=== PATIENT | male | born 1945 | race Caucasian/White ===

== ENCOUNTER 2020-03-08 09:41 | Day surgery (SDC) | payer MEDICARE ==
[2020-03-08] VITALS (12 sets, daily range): BP systolic 119–176; BP diastolic 54–86
[~2020-03-08] VITALS: Ht 177.8 cm; Wt 101.3 kg
[2020-03-08] MEDS ORDERED: dextrose 50%-water 50ml dispensing syringe IV PRN ×2 (10:10)
[2020-03-08] MEDS ORDERED: MESSAGE TO PHARMACY PO ONE (10:10)
[2020-03-08] MEDS ORDERED: diphenhydrAMINE 25mg capsule PO PRN (10:10)
[2020-03-08] MEDS ORDERED: insulin Lispro (HumaLOG) vial - multi-dose SQ SCH (10:10)
[2020-03-08] MEDS ORDERED: LORazepam 0.5 MG tablet PO PRN (10:10)
[2020-03-08] MEDS ORDERED: normal saline 1,000 ML IV SCH (10:10)
[2020-03-08] MEDS ORDERED: glucagon, human recombinant 1mg kit SUBCUT PRN (10:10)
[2020-03-08] MEDS ORDERED: dextrose ORAL solution 15 GM/59 ML bottle PO PRN ×2 (10:10)
[2020-03-08] MEDS ORDERED: nitroGLYCERIN 0.4mg SUBLingual tab SL PRN (10:10)
[2020-03-08] MEDS ORDERED: CARV25TA PO (10:17)
[2020-03-08] MEDS ORDERED: METF500T PO (10:17)
[2020-03-08] MEDS ORDERED: MULT-1085 PO (10:17)
[2020-03-08] MEDS ORDERED: SIMV-42 PO (10:17)
[2020-03-08] MEDS ORDERED: AMLO10TA48 PO (10:17)
[2020-03-08] MEDS ORDERED: FURO-149 PO (10:17)
[2020-03-08] MEDS ORDERED: OMEG-79 PO (10:17)
[2020-03-08] MEDS ORDERED: MECO10005 PO (10:17)
[2020-03-08] MEDS ORDERED: LOSA100T3 PO (10:17)
[2020-03-08] MEDS ORDERED: POTA10CA44 PO (10:17)
[2020-03-08] MEDS ORDERED: ASPI-1265 PO (10:17)
[2020-03-08] MEDS ORDERED: HYDR-4070 PO (10:17)
[2020-03-08 10:41] LABS: BASOPHILS % (AUTO) 0.7 % (0-1); EOSINOPHILS % (AUTO) 0.8 % (0-6); HEMATOCRIT 37.5 % (42.0-52.0); LYMPHOCYTES # (AUTO) 1.3 X10'3 (1.1-4.8); LYMPHOCYTES % (AUTO) 24.8 % (21-51); MEAN CORPUSCULAR HEMOGLOBIN 35.2 PG (27.0-31.0); MEAN CORPUSCULAR HGB CONC 34.8 g/dL (33.0-36.5); MEAN CORPUSCULAR VOLUME 101.1 FL (78-98); MEAN PLATELET VOLUME 7.5 FL (7.4-10.4); MONOCYTES # (AUTO) 0.5 X10'3 (0-0.9); MONOCYTES % (AUTO) 9.1 % (2-12); NEUTROPHILS # (AUTO) 3.5 X10'3 (1.8-7.7); NEUTROPHILS % (AUTO) 64.6 % (42-75); PLATELET COUNT 208 X10'3 (140-440); RED BLOOD COUNT 3.71 X10'6 (4.70-6.10); RED CELL DISTRIBUTION WIDTH 13.1 % (11.5-14.5); WHITE BLOOD COUNT 5.4 X10'3 (4.5-11.0)
[2020-03-08 10:52] LABS: ALBUMIN 3.9 G/DL (3.4-5.0); ANION GAP 10 (8-16); BLOOD UREA NITROGEN 11 MG/DL (7-18); BUN/CREATININE RATIO 10.9 (5.4-32.0); CALCIUM 9.2 MG/DL (8.5-10.1); CHLORIDE 103 MMOL/L (99-107); CREATININE 1.01 MG/DL (0.60-1.10); GLUCOSE 143 MG/DL (70-104); SODIUM 142 MMOL/L (135-145); TOTAL CARBON DIOXIDE 29.5 MMOL/L (24-32); eGFR 72 ML/MIN
[2020-03-08 10:55] LABS: PARTIAL THROMBOPLASTIN TIME 29 SECONDS (22-32)
[2020-03-08 11:00] LABS: POTASSIUM 2.5 MMOL/L (3.5-5.1)
[2020-03-08] MEDS ORDERED: potassium Cl 20 mEq SR tablet PO STA (11:05)
[2020-03-08] MEDS ORDERED: potassium Cl 10 mEq/100mL bag IV ONE (11:10)
[2020-03-08] MEDS ORDERED: potassium CL 10mEq/100ml bag 100 ML IV SCH (11:20)
[2020-03-08] MEDS ORDERED: midazolam 2 mg/2 ml injection ONE ×2 (12:40→13:00)
[2020-03-08] MEDS ORDERED: heparin 1,000 UNITS/NS 500ml 500 ML ONE (12:41)
[2020-03-08] MEDS ORDERED: fentaNYL/PF 50MCG/1 ML 2ML syringe ONE (12:41)
[2020-03-08] MEDS ORDERED: iohexol 350MG/ML 100ml bottle IV ONE (12:41)
[2020-03-08] MEDS ORDERED: iohexol 350 MG/ML 50ML vial IV ONE (12:41)
[2020-03-08] MEDS ORDERED: LIDOcaine 1% (10mg/ml)w/preservative injection 20ml MDV ONE (12:41)
[2020-03-08] MEDS ORDERED: FLU VACC QS2020-21(6MOS UP)/PF 60 MCG/0.5 ML SYRINGE IMVAC ONE (14:00)
[2020-03-08] MEDS ORDERED: HYDROcodone/acetaminophen 10/325mg tab PO PRN (14:05)
[2020-03-08] MEDS ORDERED: morphine 4 MG/ML inj SYRINge IV PRN (14:05)
[2020-03-08] MEDS ORDERED: HYDROcodone/acetaminophen 5mg/325mg tablet PO PRN (14:05)
[2020-03-08] MEDS ORDERED: OXAZEpam 15mg capsule PO PRN (14:05)
[2020-03-08] MEDS ORDERED: ondansetron/PF 4mg/2ml inj IV PRN (14:05)
[2020-03-08] MEDS ORDERED: proCHLORperazine 10 MG/2 ml inj IV PRN (14:05)
[2020-03-08] MEDS ORDERED: ACETYLCYSTEINE 200 MG/1 ML 4 ML ORAL SOLUTION PO SCH (20:00)
[2020-03-08] MEDS ORDERED: insulin glargine (Lantus) pen - multi-dose SQ SCH (21:00)
== END 2020-03-08 19:00 | disposition home or self-care (01) ==
LOC: SSTAY O 09:41
PROVIDERS: ATTEND Internal Medicine Cardiovascular Disease
DX: R94.39 Abnormal result of other cardiovascular function study (principal); I25.119 Atherosclerotic heart disease of native coronary artery with unspecified angina pectoris; E11.9 Type 2 diabetes mellitus without complications; J44.9 Chronic obstructive pulmonary disease, unspecified; M19.90 Unspecified osteoarthritis, unspecified site; I10 Essential (primary) hypertension; E78.5 Hyperlipidemia, unspecified; F17.210 Nicotine dependence, cigarettes, uncomplicated; F12.90 Cannabis use, unspecified, uncomplicated; Z88.8 Allergy status to other drugs, medicaments and biological substances; Z79.899 Other long term (current) drug therapy; Z79.01 Long term (current) use of anticoagulants
CPT/HCPCS: 36415; 80048; 82948; 83036; 85025; 85610; 85730; 93005; 93458; 99152; C1760; C1769; J1644; J2001; J2250; J3010; J3480; J7030; Q0163; Q9967; A4620; J1815